=== PATIENT | male | born 1950 | race Caucasian/White ===

== ENCOUNTER 2020-03-23 08:22 | Observation (INO) ==
--- NOTE | 2020-02-23 13:09 | PAT Medication Instructions ---
Medication Instructions Date of Service February 23, 2020 Home Medications Medication Instructions Recorded Jaison Pascual #1 ea 02/23/20 alfalfa 250 mg PO QAM allopurinol 300 mg PO QAM amlodipine-benazepril 1 cap PO QAM ascorbic acid (vitamin C) [Vitamin C] 500 mg PO PM aspirin 81 mg PO QAM beta carotene 7,500 unit PO PM calcium 600 mg PO BID cholecalciferol (vitamin D3) [Vitamin D3] 25 mcg PO QAM cyanocobalamin (vitamin B-12) [Vitamin B-12] 500 mcg PO QAM etanercept [Enbrel] 50 mg SUBCUT WK folic acid 0.4 mg PO QAM glucosamine sulfate [Glucosamine] 1,000 mg PO HS multivitamin 1 cap PO PM omega-3 fatty acids-fish oil [[place] 3 Fish Oil] 1 cap PO BID saw palmetto 450 mg PO QAM sodium chloride [Saline Nasal] 1 spray INTRANASAL HS vitamin E 400 unit PO BID ASK your prescriber and surgeon etanercept [Enbrel] 50 mg SUBCUT WK STOP taking 2 weeks before surgery vitamin E 400 unit PO BID alfalfa 250 mg PO QAM beta carotene 7,500 unit PO PM glucosamine sulfate [Glucosamine] 1,000 mg PO HS omega-3 fatty acids-fish oil [[place] 3 Fish Oil] 1 cap PO BID saw palmetto 450 mg PO QAM DO NOT take the morning of surgery amlodipine-benazepril 1 cap PO QAM calcium 600 mg PO BID cholecalciferol (vitamin D3) [Vitamin D3] 25 mcg PO QAM cyanocobalamin (vitamin B-12) [Vitamin B-12] 500 mcg PO QAM folic acid 0.4 mg PO QAM Take morning of surgery With a small sip of water, OTHERWISE NOTHING TO EAT OR DRINK AFTER MIDNIGHT: allopurinol 300 mg PO QAM aspirin 81 mg PO QAM Take evening before surgery ascorbic acid (vitamin C) [Vitamin C] 500 mg PO PM calcium 600 mg PO BID multivitamin 1 cap PO PM sodium chloride [Saline Nasal] 1 spray INTRANASAL HS Other Notes If you have any questions please call us at [phone] or [phone] or [phone] or [phone]
--- NOTE | 2020-02-23 13:19 | Anesthesiology Consultation ---
Date of Service February 23, 2020 Assessment & Plan (1) Encounter for pre-operative examination: COVID Status: As of 02/22 assessment, patient denies travel to endemic area, known exposure/sick contacts, or symptoms of COVID19. Patient instructed that they and their household members must follow strict social distancing guidelines, wear a mask in public and avoid travel for 14 days prior to surgery. Preoperative COVID19 testing to be completed prior to surgery per surgeon's ar rangements (pt reports to be done 03/17). Patient made aware to self-isolate as much as possible between COVID testing and surgery. Chart Review Chart Review: Acceptable Risk for Surgery and Patient seen in Pre Admission Testing Teaching & Discussion Instructed NPO after midnight before surgery, except medications with 15 cc of water. Medication instructions provided according to the PAT guidelines. History Surgery Operation Date: 03/23/20 12:30 Proposed Procedures p Left Total Knee Arthroplasty - Noam Nicole MD Height/Weight Height: 5 ft 9 in Weight: 101.4 kg Allergies Allergy/AdvReac Type Severity Reaction Status Date / Time No Known Allergies Allergy Verified 02/23/20 10:07 Medications Home Medications Medication Instructions Recorded Confirmed Last Taken Wheeled Walker #1 ea 02/23/20 02/23/20 Unknown alfalfa 250 mg PO QAM 02/23/20 02/23/20 Unknown allopurinol 300 mg PO QAM 02/23/20 02/23/20 Unknown amlodipine-benazepril 1 cap PO QAM 02/23/20 02/23/20 Unknown ascorbic acid (vitamin C) [Vitamin 500 mg PO PM 02/23/20 02/23/20 Unknown C] aspirin 81 mg PO QAM 02/23/20 02/23/20 Unknown beta carotene 7,500 unit PO PM 02/23/20 02/23/20 Unknown calcium 600 mg PO BID 02/23/20 02/23/20 Unknown cholecalciferol (vitamin D3) 25 mcg PO QAM 02/23/20 02/23/20 Unknown [Vitamin D3] cyanocobalamin (vitamin B-12) 500 mcg PO QAM 02/23/20 02/23/20 Unknown [Vitamin B-12] echinacea 400 mg PO QAM 02/23/20 02/23/20 Unknown etanercept [Enbrel] 50 mg SUBCUT WK 02/23/20 02/23/20 Unknown folic acid 0.4 mg PO QAM 02/23/20 02/23/20 Unknown glucosamine sulfate [Glucosamine] 1,000 mg PO HS 02/23/20 02/23/20 Unknown multivitamin 1 cap PO PM 02/23/20 02/23/20 Unknown omega-3 fatty acids-fish oil 1 cap PO BID 02/23/20 02/23/20 Unknown [[place] 3 Fish Oil] saw palmetto 450 mg PO QAM 02/23/20 02/23/20 Unknown sodium chloride [Saline Nasal] 1 spray INTRANASAL HS 02/23/20 02/23/20 Unknown vitamin E 400 unit PO BID 02/23/20 02/23/20 Unknown Past Medical History Medical History DDD (degenerative disc disease) Had lumbar steroid injection in mid-January Gout right big toe with gout at this time Hypertension Left knee DJD Rheumatoid arthritis On Enbrel Sleep apnea with cpap Exercise / Class Metabolic Activity II 4-5 Yardwork/Stairs/Walk up hill (Denies CP or SOB with 1 FOS) Past Surgical History Surgical History History of carpal tunnel release right and left History of cataract surgery both eyes History of colonoscopy had on polyp removed History of esophagogastroduodenoscopy (EGD) 1990, 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 Physical Exam Vital Signs Last Vital Signs Temp 36.8 C 02/23/20 12:55 Pulse 100 H 02/23/20 12:55 Resp 16 02/23/20 12:55 BP 148/84 H 02/23/20 12:55 Pulse Ox 96 02/23/20 12:55 ENMT Mouth: + chipped teeth (worn down/broken lower incisors); no dental restorations and no loose teeth Thyromental Distance: > or= 3.5 Finger Breadths Mallampati Class: II Neck + short neck; neck extension not limited Respiratory normal respiratory effort Auscultation: lungs clear to auscultation bilaterally Cardiovascular Rate/Rhythm: regular rhythm and + tachycardic Heart Sounds: no murmur Extremities: no edema Testing Laboratory Results 02/23/20 13:30 02/23/20 13:30 PT 10.5 Seconds (9.0-12.0) 02/23/20 13:30 INR 1.0 (0.9-1.1) 02/23/20 13:30 APTT 24.3 Seconds (21.0-31.0) 02/23/20 13:30 Blood Type O Negative 02/23/20 13:30 Antibody Screen NEGATIVE 02/23/20 13:30 Electrocardiogram Date: 02/23/20 Findings: + NSR @ (91bpm) With PACs, otherwise normal. Chest X-Ray Date: 02/23/20 Findings: + NAD
--- NOTE | 2020-02-23 13:54 | XRay Report ---
XR chest Pre-admission PA/Lat CLINICAL HISTORY: Preoperative chest COMPARISON STUDY: No previous studies for comparison. FINDINGS: The cardiac and mediastinal contours are normal. There is no evidence of focal pulmonary co nsolidation. There is no evidence of failure. No pleural effusions are visualized.[ IMPRESSION: No active disease in the chest. ACT 112: Negative or not required by law. Electronically signed by: Da Lara M.D. 02/23/2020 1:52 PM
[2020-02-23 14:02] LABS: Basophils # (auto) 0.01 K/uL (0-0.2); Basophils % (auto) 0.1 %; Eosinophils # (auto) 0.06 K/uL (0-0.5); Eosinophils % (auto) 0.6 %; Hematocrit (blood only) 44.3 % (42-52); Hemoglobin 14.7 g/dL (14.0-18.0); Immature Granulocytes # (auto) 0.08 K/uL (0.00-0.02); Immature Granulocytes % (auto) 0.8 %; Mean Corpuscular Hemoglobin 29.1 pg (25-34); Mean Corpuscular Hgb Conc 33.2 g/dL (32-36); Mean Corpuscular Volume 87.7 fL (80-100); Mean Platelet Volume 10.5 fL (7.4-10.4); Monocytes # (auto) 0.75 K/uL (0.11-0.59); Monocytes % (auto) 7.5 %; Neutrophils # (auto) 7.01 K/uL (1.4-6.5); Platelet Count 204 K/uL (130-400); RDW Coefficient of Variation 13.5 % (11.5-14.5); RDW Standard Deviation 43.4 fL (36.4-46.3); Red Blood Count 5.05 M/uL (4.7-6.1); White Blood Count 10.01 K/uL (4.8-10.8)
[2020-02-23 14:27] LABS: Partial Thromboplastin Ratio 0.9; Partial Thromboplastin Time 24.3 Seconds (21.0-31.0); Prothrombin Time 10.5 Seconds (9.0-12.0)
[2020-02-23 14:35] LABS: BUN Creatinine Ratio 12.7 (10-20); Calcium 9.4 mg/dl (8.5-10.1); Est GFR (African American) 61.5; Est GFR (Non-African American) 53.1; Potassium 4.1 mmol/L (3.5-5.1)
--- NOTE | 2020-02-23 16:14 | Electrocardiogram Report ---
Test Reason : Blood Pressure : / mmHG Vent. Rate : 091 BPM Atrial Rate : 091 BPM P-R Int : 148 ms QRS Dur : 092 ms QT Int : 332 ms P-R-T Axes : 057 087 058 degrees QTc Int : 408 ms Sinus rhythm with Premature atrial complexes Otherwise normal ECG No previous ECGs available Confirmed by Kevin Jean ([id number]) on 02/23/2020 4:14:10 PM Referred By: Noam Nicole Confirmed By:Kevin Jean
[~2020-03-23 08:22] MED LIST: ACETAMINOPHEN 500 MG TAB PO SCH; BUPIVACAINE 0.25% 30 ML VIAL ONE; BUPIVACAINE 0.5 % 5 MG/1 ML PF 10ML VIAL ONE; BUPIVACAINE LIPOSOME/PF 266 MG, BUPIVACAINE/EPINEPHRINE 50 ML, SODIUM CHLORIDE 0.9% 30 ... INFIL SCH; FAMOTIDINE 20 MG TAB PO SCH; GABAPENTIN 300 MG CAP PO SCH; LR 500ML BOLUS, THEN 15ML/HR IV SCH; LR 60ML/HR IV SCH; METOCLOPRAMIDE HCL 10 MG TABLET PO SCH; TRANEXAMIC ACID 1,000 MG **IV Intra-op IV SCH; TRANEXAMIC ACID 1,000 MG x 1 **For Topical Use TOP SCH; ceFAZolin 2000MG 2,000 MG/15 ML SYR IV SCH
--- NOTE | 2020-03-23 08:37 | History & Physical Bridge Note ---
Date of Service March 23, 2020 History & Physical Bridge Note I have examined the patient, reviewed the History & Physical and in the interval since the performance of the History & Physical I have noted the following changes of clinical significance: no changes noted
[2020-03-23] MEDS ORDERED: MIDAZOLAM HCL 1 MG/ML 2ML VIAL ONE (09:09)
[2020-03-23] MEDS ORDERED: fentaNYL citrate 100 MCG/2 ML VIAL ONE (09:09)
[2020-03-23] MEDS ORDERED: PROPOFOL IV EMULSION 10 MG/ML 20 ML VIAL IV ONE ×3 (09:10→11:03)
[2020-03-23] MEDS ORDERED: BUPIVACAINE 0.25% 30 ML VIAL ONE (10:18)
[2020-03-23] MEDS ORDERED: BACITRACIN INJ 50,000 UNIT VIAL ONE (10:18)
[2020-03-23] MEDS ORDERED: SODIUM CHLORIDE 0.9% PF 50 ML VIAL ONE (10:18)
[2020-03-23] MEDS ORDERED: BUPIVACAINE LIPOSOME 1.3% 266 MG/20 ML VIAL ONE (10:18)
[2020-03-23] MEDS ORDERED: EPINEPHrine INJ 1 MG/ML AMP ONE (10:19)
[2020-03-23] MEDS ORDERED: ATROPINE SULFATE 0.1 MG/ML 10ML SYR IV PRN (10:59)
[2020-03-23] MEDS ORDERED: ePHEDrine sulfate 50 MG/ML AMP IV PRN (10:59)
[2020-03-23] MEDS ORDERED: fentaNYL citrate 100 MCG/2 ML VIAL IV PRN (10:59)
[2020-03-23] MEDS ORDERED: ONDANSETRON INJ 2 MG/ML 2 ML VIAL IV PRN ×2 (10:59→13:53)
[2020-03-23] MEDS ORDERED: PHENYLEPHRINE 100MCG/ML 5ML SYR ONE (11:17)
--- NOTE | 2020-03-23 12:19 | Post Operative Brief Note ---
PG Immediate Post Op with CF Date of Surgery March 23, 2020 Pre & Post Diagnosis Operation Date: 03/23/20 10:40 Pre-Op Diagnosis: Left Knee Advanced Degnerative Joint Disease Post-Op Diagnosis: Left Knee Advanced Degnerative Joint Disease I identified the patient and participated in the time-out.: Yes Procedure Operation Date: 03/23/20 10:40 Actual Procedures p Left Total Knee Arthroplasty(Left) - Noam Nicole MD Surgeon Noam Nicole MD Battery Mechanic DOUG Machado Estimated Blood Loss 50 Findings Consistent with Post-Op Diagnosis Fluids 1000 cc Specimens Specimen Description: A. Left Knee Bone and Tissue Drains Pillai Catheter Anesthesia Type Spinal MAC Complications none Disposition Accompanied Patient To Recovery: No Disposition: Recovery Room
--- NOTE | 2020-03-23 12:30 | Operative Report ---
Post Operative Report Pre & Post Diagnosis Operation Date: 03/23/20 10:40 Pre-Op Diagnosis: Left Knee Advanced Degnerative Joint Disease Post-Op Diagnosis: Left Knee Advanced Degnerative Joint Disease I identified the patient and participated in the time-out.: Yes Procedure Operation Date: 03/23/20 10:40 Actual Procedures p Left Total Knee Arthroplasty(Left) - Noam Nicole MD Surgeon Noam Nicole MD Design Leader DOUG Machado Estimated Blood Loss 50 Findings Consistent with Post-Op Diagnosis Operative findings revealed advanced left knee medial compartment arthritis. He had grade 4 disease of the medial femoral condyle medial tibial plateau. 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 The lateral and patellofemoral compartments were quite well-preserved. Moderate-sized joint effusion. Fluids 1000 cc Specimens Left knee sent for pathology. Drains None. Anesthesia Type Spinal MAC Complications none Disposition Accompanied Patient To Recovery: No Disposition: Recovery Room Indications Patient is a 61-year-old gentleman is had a several year history of increasing left knee pain discomfort which been unresponsive conservative treatment. Measures and elected proceed with total knee arthroplasty. Description of Procedure Operative implants consisted of: 1. Biomet Vanguard size 65 the left posterior stabilized femoral component. 2. Biomet size 75 tibial tray. 3. 10 mm posterior stabilized polyethylene insert. 4. 31 x 8 all polypatella. The patient was taken to the operating identified and placed on the operating table supine position protectors were properly padded. IV antibiotics tried by anesthesia team. A spinal anesthetic and abductor canal block had been provided in the holding area. A Pillai catheter was placed in sterile fashion. A left thigh turn was then placed. The left lower extremities then prepped and draped in usual sterile fashion. The left leg was elevated exsanguinated with use of an Esmarch and tourniquet placed at 3 mmHg. An anterior approach to the left knee was then performed through a longitudinal incision centered over the patella. Sharp dissection was got through subcutaneous tissue down the extensor mechanism. A medial parapatellar arthrotomy incision was made. Some subperiosteal dissection was carried out medially. The fat pad was resected from each patella tendon. Lateral patellofemoral ligament was released. Patella was subluxated laterally and the knee was flexed. The osteophytes were taken off the distal femur. The ACL and PCL were then released from the distal femur and the tibia was subluxa dalia anteriorly. The external tibial alignment jig was then placed in the interface the tibia and adjusted 14 mm medially. Proximal tibial cut was made to remove about 2 to 3 mm of bone from the medial side. Some osteophytes taken off medially. The tibia sized to a size 75. Attention drawn the femur. The distal femur was entered with a sharp drill. Intramedullary canal was suction. A left 6 degree valgus cutting guide was placed. Distal femoral cutting block was pinned in place. Distal femoral cut was made taking additional 3 mm bone off distal femur. The femur was then sized to a size 65. The AP cutting block was pinned parallel to the epicondylar axis which was 5 degrees of external rotation. The anterior cut, anterior chamfer, posterior cut, posterior chamfer cuts were made. The box cutting guide was placed in a just slight lateral box cut was made. The knee was flexed. The remnants of the medial and lateral menisci were excised. The osteophytes were taken off the po sterior aspect the femur. A trial femoral component was placed. The tibial tray was pinned in maximum external rotation and the drill and stem punch were used to create defect in proximal tibia for the tibial tray. The knee was then trialed the 10 mm insert fit most appropriately. Attention drawn the patella. The patella was cleaned of all soft tissues. Patella thickness measured 22 mm in thickness was cut down to 13. Was sized to a size 31 patella. The lug holes were drilled for 31 patella. The lateral osteophyte was removed. Patella button was placed. Knee was taken through range of motion patella tracked nicely with no thumbs test. Attention drawn to place the permanent components. All trial components were removed. A bone plug was placed in the distal femur limit blood loss. A double batch [place] G cement was mixed. A Biomet Vanguard size 65 left posterior stabilized femoral component, size 75 tibial tray, 10 mm posterior stabilized polyethylene insert, and a 31 x 8 all polypatella were then cemented in place. Knee was brought out into full extension total cement hardened. Final cement check was then performed. The pericapsular tissues were injected with total 100 cc of combination of 20 cc of Exparel, 30 cc normal saline, 50 cc of quarter percent Marcaine with epinephrine. The patient did receive 1 g tranexamic acid. The tourniquet was let down for final tourniquet time 57 minutes. Hemostasis assured use electrocautery. The extensor neck was then closed with combination 1 PDS suture #1 Vicryl suture in [id number] fashion. The extensor mechanism checked found to be intact with subcutaneous tissue then closed with 2 Dexon suture in a buried interrupted fashion. Skin was closed skin magaly. The leg was then cleaned and dried and a sterile dressing composed of Xeroform, 4 x 4's, sterile cast padding, Loc bandage were applied. Patient then transferred to the recovery room in stable condition. Patient tolerated procedure well and there were no complications. Eloy Machado, my physician sales assistant institutional sales, was present for the entire procedure. His assistance was essential and required for appropriate patient positioning, prepping and draping, surgical exposure, performing the technical details of the operation, placement the implants, closure of the wound, and placement of the sterile bandage. I attest to the content of the Intraoperative Record and any orders documented therein. Any exceptions are noted below.
--- NOTE | 2020-03-23 12:46 | XRay Report ---
XR knee LT 1 or 2V routine CLINICAL HISTORY: Postoperative evaluation. COMPARISON: Left knee radiographs February 23, 2020. FINDINGS: Alignment of the total left knee arthroplasty is anatomic. There is no periprosthetic frac ture or unexpected radiopaque foreign body. There are skin magaly. IMPRESSION: Expected findings following total left knee arthroplasty. ACT 112: Negative or not required by law. Electronically signed by: Tae Barker M.D. 03/23/2020 12:44 PM
--- NOTE | 2020-03-23 12:59 | Anesthesiology Progress Note ---
Date of Service March 23, 2020 Anesthesia Post Procedure Vital Signs Vital Signs: Temp Pulse Pulse Resp BP BP Pulse Ox 03/23/20 12:50 92 H 18 132/77 98 03/23/20 12:40 87 19 127/77 98 03/23/20 12:30 85 20 118/66 100 03/23/20 12:24 36.3 C L 87 14 125/68 100 03/23/20 09:57 37.1 C 89 20 141/88 H 95 03/23/20 09:24 37.3 C 100 H 18 155/86 H 95 Pain Intensity Left Knee: Pain Intensity: 0 Transfer of Care Handoff Completed per policy Notes Mental Status: alert / awake / arousable and participated in evaluation Patient Amnestic to Procedure: Yes Nausea / Vomiting: adequately controlled Pain: adequately controlled Airway Patency, RR, SpO2: stable & adequate BP & HR: stable & adequate Hydration State: stable & adequate Neuraxial Anesthesia: was administered and sensory block is resolving Anesthetic Complications: no major complications apparent and Pt Satisfied with anesthetic care
[2020-03-23] MEDS ORDERED: MAGNESIUM HYDROXIDE SUSP 30 ML UDC PO PRN (13:53)
[2020-03-23] MEDS ORDERED: oxyCODONE HCL IR 5 MG TAB (IMMEDIATE RELEASE) PO PRN (13:53)
[2020-03-23] MEDS ORDERED: HYDROmorphone INJ 0.5 MG/0.5 ML SYR IV PRN (13:53)
[2020-03-23] MEDS ORDERED: METOCLOPRAMIDE HCL INJ 5 MG/ML 2 ML VIAL IV PRN (13:53)
[2020-03-23] MEDS ORDERED: TAMSULOSIN HCL 0.4 MG CAP PO PRN (13:53)
[2020-03-23] MEDS ORDERED: ALUMINUM/MAGNESIUM SUSP 30 ML UDC PO PRN (13:53)
[2020-03-23] MEDS ORDERED: bisacodyL 10 MG SUPP PR PRN (13:53)
[2020-03-23] MEDS ORDERED: NALOXONE HCL 0.4 MG/1 ML VIAL/CARP IV PRN (13:53)
[2020-03-23] MEDS: SODIUM CHLORIDE 0.9% 1000ML 1,000 ML IV SCH ×2 (14:41→22:58)
[2020-03-23] MEDS: ACETAMINOPHEN 500 MG TAB PO SCH ×2 (14:44→21:56)
[2020-03-23] MEDS: KETOROLAC TROMETHAMINE 15 MG/ML VIAL IV SCH ×2 (14:46→21:58)
[2020-03-23] MEDS: FERROUS GLUCONATE 324 MG TAB PO SCH (18:06)
[2020-03-23] MEDS: Scopolamine CHECK PATCH PLACEMENT SCH ×2 (18:07→22:58)
[2020-03-23] MEDS: ceFAZolin 2000MG 2,000 MG/15 ML SYR IV SCH (18:14)
[2020-03-23] MEDS ORDERED: TRANEXAMIC ACID / 0.7% NACL 1,000 MG/100 ML BAG IV SCH (18:30)
[2020-03-23] MEDS ORDERED: SODIUM CHLORIDE 0.65% NA SOLN 45 ML (OCEAN) NAE SCH (21:00)
[2020-03-23] MEDS ORDERED: ASCORBIC ACID 500 MG TAB PO SCH (21:00)
[2020-03-23] MEDS ORDERED: MULTIVITAMIN TAB PO SCH (21:00)
[2020-03-23] MEDS ORDERED: SENNA 8.6 MG TAB PO SCH (21:00)
[2020-03-23] MEDS ORDERED: BETA CAROTENE PO SCH (21:00)
[2020-03-23] MEDS: TOCOPHERYL, DL-ALPHA 400 UNITS CAP PO SCH (21:55)
[2020-03-23] MEDS: DOCUSATE SODIUM 100 MG CAP PO SCH (21:56)
[2020-03-23] MEDS: ASPIRIN 81 MG ECTAB PO SCH (21:57)
[2020-03-23] MEDS: CALCIUM CARBONATE 1250MG TAB PO SCH (21:58)
[2020-03-23] MEDS: TAPENTADOL HCL ER 50 MG TABCR PO SCH (22:04)
[2020-03-24] MEDS: KETOROLAC TROMETHAMINE 15 MG/ML VIAL IV SCH ×2 (02:18→09:11)
[2020-03-24] MEDS: ceFAZolin 2000MG 2,000 MG/15 ML SYR IV SCH (02:18)
[2020-03-24] MEDS: ACETAMINOPHEN 500 MG TAB PO SCH ×2 (05:32→13:18)
[2020-03-24 06:44] LABS: Hematocrit (blood only) 38.3 % (42-52); Hemoglobin 12.6 g/dL (14.0-18.0); Mean Corpuscular Hemoglobin 29.2 pg (25-34); Mean Corpuscular Hgb Conc 32.9 g/dL (32-36); Mean Corpuscular Volume 88.7 fL (80-100); Mean Platelet Volume 10.8 fL (7.4-10.4); Platelet Count 198 K/uL (130-400); RDW Coefficient of Variation 13.5 % (11.5-14.5); RDW Standard Deviation 44.5 fL (36.4-46.3); Red Blood Count 4.32 M/uL (4.7-6.1); White Blood Count 10.22 K/uL (4.8-10.8)
[2020-03-24 06:51] LABS: BUN Creatinine Ratio 13.3 (10-20); Calcium 8.6 mg/dl (8.5-10.1); Creatinine Clr Calc Pharmacy 60.5 ml/min; Est GFR (African American) 61.5; Est GFR (Non-African American) 53.1; Potassium 4.5 mmol/L (3.5-5.1)
[2020-03-24] MEDS: FERROUS GLUCONATE 324 MG TAB PO SCH (08:55)
[2020-03-24] MEDS: ASPIRIN 81 MG ECTAB PO SCH (08:56)
[2020-03-24] MEDS: DOCUSATE SODIUM 100 MG CAP PO SCH (08:56)
[2020-03-24] MEDS: CALCIUM CARBONATE 1250MG TAB PO SCH (08:58)
[2020-03-24] MEDS ORDERED: ECHINACEA 400 MG PO SCH (09:00)
[2020-03-24] MEDS ORDERED: NON-FORMULARY MEDICATION (Saw Palmetto 450 mg Capsule) PO SCH (09:00)
[2020-03-24] MEDS ORDERED: CYANOCOBALAMIN 500 MCG TABLET (VITAMIN B-12) PO SCH (09:00)
[2020-03-24] MEDS ORDERED: amLODIPine BESYLATE 5 MG TAB PO SCH (09:00)
[2020-03-24] MEDS ORDERED: AMLODIPINE BENAZEPRIL PO SCH (09:00)
[2020-03-24] MEDS ORDERED: MULTIVITAMIN TAB PO SCH (09:00)
[2020-03-24] MEDS ORDERED: ALFALFA 250 MG PO SCH (09:00)
[2020-03-24] MEDS ORDERED: ENALAPRIL MALEATE 10 MG TAB PO SCH (09:00)
[2020-03-24] MEDS ORDERED: allopurinoL 300 MG TAB PO SCH (09:00)
[2020-03-24] MEDS ORDERED: FOLIC ACID 400 MCG TAB PO SCH (09:00)
[2020-03-24] MEDS ORDERED: CHOLECALCIFEROL 1,000 UNITS 25 MCG TAB PO SCH (09:00)
[2020-03-24] MEDS: TOCOPHERYL, DL-ALPHA 400 UNITS CAP PO SCH (09:00)
[2020-03-24] MEDS: Scopolamine CHECK PATCH PLACEMENT SCH (09:07)
[2020-03-24] MEDS: TAPENTADOL HCL ER 50 MG TABCR PO SCH (09:07)
--- NOTE | 2020-03-24 10:41 | Progress Notes ---
DATE: 03/24/2020 SUBJECTIVE: A 69-year-old gentleman postop day 1 from left knee replacement. He is doing pretty well. Had a pretty good night. His pain is controlled. No chest pain or shortness of breath. Not feeling dizzy or lightheaded. OBJECTIVE: VITAL SIGNS: Temperature 36.7. Vital signs stable. GENERAL: Shows a pleasant, middle-aged male. He is lying in bed this morning and looks quite comfortable. LUNGS: Clear to auscultation. HEART: Regular rate and rhythm. ABDOMEN: Soft, nontender, nondistended. EXTREMITIES: Grossly neurovascularly intact except as follows: Examination of the left lower extremity reveals the leg to be well aligned. Dressing is clean, dry, and intact. He can dorsiflex and plantarflex his foot appropriately. He is neurologically intact. LABORATORY DATA: Hemoglobin 12.6. Hematocrit 38.3. Electrolytes are stable. ASSESSMENT: A 69-year-old gentleman postoperative day 1 from left knee replacement, doing pretty well. Pain seems to be quite well controlled. He is neurologically intact. PLAN: 1. DVT prophylaxis including thigh-high TEDs, SCDs, and aspirin twice a day. 2. PT/OT. Weight bear as tolerated. Left total knee protocol. 3. Pain control, doing pretty well with current pain regimen. 4. Disposition: Plan to discharge to home with some home health once adequately recovered and medically stable.
--- NOTE | 2020-03-29 15:26 | Discharge Summary ---
Date of Service March 29, 2020 Admission HPI Per Admitting Provider Documented in the H & P Admission Exam (Per Admitting) Constitutional Documented in the H & P Discharge Data Consultations 03/23/20 13:53 Consult Case Management - Discharge Planning Routine Procedures Performed Operation Date: 03/23/20 10:40 Actual Procedures p Left Total Knee Arthroplasty(Left) - Noam Nicole MD Hospital Course (1) Status post total left knee replacement: This patient is a 69 year old male admitted on 03/23/20 and underwent total knee arthroplasty. He tolerated the procedure well and there were no complications. Transferred to the PACU post op and later to the orthopedic floor for further care. He was given ancef for antibiotic prophylaxis. He was also given KAREN stockings, SCDs, and aspirin for DVT prophylaxis. Hemoglobin, hematocrit, and vital signs were monitored during his hospital stay and remained stable. Did not require any blood transfusions. There were no complications during his hospital stay. By post op day #1 the patient was tolerating a regular diet, pain was reasonably controlled with oral pain medicine, and he was participating in physical therapy. On post op day #1 the patient was discharged home and set up with home health care. He was given printed discharge instructions including prescriptions for extra strength tylenol, aspirin, and oxycodone. Continue physical therapy, weight bearing as tolerated. Continue KAREN stockings. Follow up approximately 2 weeks post op or sooner if there are problems or concerns. Coding Level of Care Code None Diagnoses Status post total left knee replacement Z96.652
== END 2020-03-24 13:35 | disposition home health service (06) ==
LOC: 3E 08:22 → ASU 08:22

== ENCOUNTER 2024-10-31 07:03 | Observation (INO) ==
--- NOTE | 2024-10-09 13:28 | PAT Medication Instructions ---
Medication Instructions Date of Service October 09, 2024 Home Medications Medication Instructions Recorded Jaison Pascual #1 ea 02/23/20 allopurinol 300 mg tablet 300 mg PO QAM amlodipine 10 mg-benazepril 40 mg capsule 1 cap PO QAM ascorbic acid (vitamin C) 500 mg tablet (Vitamin C) 500 mg PO PM calcium 600 mg capsule 600 mg PO QAM cholecalciferol (vitamin D3) 25 mcg (1,000 unit) capsule (Vitamin D3) 25 mcg PO QAM cyanocobalamin (vitamin B-12) 500 mcg tablet,extended release 500 mcg PO QAM echinacea 400 mg capsule 400 mg PO QAM PRN winter etanercept 50 mg/mL (1 mL) subcutaneous syringe (Enbrel) 50 mg subcut WK folic acid 400 mcg tablet 0.4 mg PO QAM multivitamin 1 cap PO PM omega-3 fatty acids-fish oil 684 mg-1,200 mg capsule,delayed release 1 cap PO BID saw palmetto 450 mg capsule 450 mg PO QAM sodium chloride 0.65 % nasal spray aerosol (Saline Nasal) 1 spray intranasal HS vitamin E 268 mg (400 unit) capsule 400 unit PO BID aspirin 81 mg tablet 81 mg PO QAM beta carotene 5,000 unit capsule 10,000 unit PO PM gabapentin 400 mg tablet 400 mg PO HS gabapentin 800 mg tablet 800 mg PO HS glucosamine HCl 1,500 mg tablet 1,500 mg PO QAM hydrochlorothiazide 12.5 mg tablet 12.5 mg PO Q2D magnesium 200 mg tablet 400 mg PO QAM ASK your prescriber and surgeon etanercept 50 mg/mL (1 mL) subcutaneous syringe (Enbrel) 50 mg subcut WK aspirin 81 mg tablet 81 mg PO QAM STOP taking 2 weeks before surgery (or as soon as possible if surgery is within 2 weeks) echinacea 400 mg capsule 400 mg PO QAM PRN winter omega-3 fatty acids-fish oil 684 mg-1,200 mg capsule,delayed release 1 cap PO BID saw palmetto 450 mg capsule 450 mg PO QAM vitamin E 268 mg (400 unit) capsule 400 unit PO BID beta carotene 5,000 unit capsule 10,000 unit PO PM glucosamine HCl 1,500 mg tablet 1,500 mg PO QAM DO NOT take the morning of surgery amlodipine 10 mg-benazepril 40 mg capsule 1 cap PO QAM calcium 600 mg capsule 600 mg PO QAM cholecalciferol (vitamin D3) 25 mcg (1,000 unit) capsule (Vitamin D3) 25 mcg PO QAM cyanocobalamin (vitamin B-12) 500 mcg tablet,extended release 500 mcg PO QAM folic acid 400 mcg tablet 0.4 mg PO QAM hydrochlorothiazide 12.5 mg tablet 12.5 mg PO Q2D magnesium 200 mg tablet 400 mg PO QAM Take morning of surgery With a small sip of water, OTHERWISE NOTHING TO EAT OR DRINK AFTER MIDNIGHT: allopurinol 300 mg tablet 300 mg PO QAM Take evening before surgery ascorbic acid (vitamin C) 500 mg tablet (Vitamin C) 500 mg PO PM multivitamin 1 cap PO PM sodium chloride 0.65 % nasal spray aerosol (Saline Nasal) 1 spray intranasal HS gabapentin 400 mg tablet 400 mg PO HS gabapentin 800 mg tablet 800 mg PO HS Other Notes If you have any questions please call us at [phone] or [phone] or [phone] or [phone]
--- NOTE | 2024-10-14 08:17 | Anesthesiology Consultation ---
Date of Service October 14, 2024 Assessment & Plan (1) Encounter for pre-operative examination: - Infectious disease screening: Per assessment on 10/14/24- No known recent infectious disease contacts or current infectious disease symptoms. - Outpatient joint assessment: Pt currently scheduled for inpatient pathway. If surgeon requests review for outpatient joint pathway, patient is an acceptable candidate for outpatient joint program from anesthesia standpoint pending surgeon's office assessment that patient is motivated, has good support and completes [facility] preop requirements. Chart Review Chart Review: Acceptable Risk for Surgery and Patient seen in Pre Admission Testing Teaching & Discussion Pre-Anesthesia Teaching/Discussion Notes: Instructed NPO after midnight before surgery,except medications with 15 cc of water. Medication instructions provided according to the PAT guidelines. History Surgery Operation Date: 10/31/24 10:40 Proposed Procedures p Right Total Knee Arthroplasty - Noam Nicole MD Height/Weight Height: 5 ft 9 in Weight: 97.3 kg Allergies Allergy/AdvReac Type Severity Reaction Status Date / Time No Known Allergies Allergy Verified 10/09/24 08:45 Medications Home Medications Medication Instructions Recorded Confirmed Last Taken Wheeled Walker #1 ea 02/23/20 04/07/20 Unknown allopurinol 300 mg tablet 300 mg PO QAM 02/23/20 10/09/24 03/22/20 08:00 amlodipine 10 mg-benazepril 40 mg 1 cap PO QAM 02/23/20 10/09/24 03/22/20 08:00 capsule ascorbic acid (vitamin C) 500 mg 500 mg PO PM 02/23/20 10/09/24 03/22/20 08:00 tablet (Vitamin C) calcium 600 mg capsule 600 mg PO QAM 02/23/20 10/09/24 03/23/20 06:00 cholecalciferol (vitamin D3) 25 25 mcg PO QAM 02/23/20 10/09/24 03/22/20 08:00 mcg (1,000 unit) capsule (Vitamin D3) cyanocobalamin (vitamin B-12) 500 500 mcg PO QAM 02/23/20 10/09/24 03/22/20 08:00 mcg tablet,extended release echinacea 400 mg capsule 400 mg PO QAM PRN winter months 02/23/20 10/09/24 03/11/20 08:00 etanercept 50 mg/mL (1 mL) 50 mg subcut WK 10/12/20 05/29/25 10/31/20 08:00 subcutaneous syringe (Enbrel) folic acid 400 mcg tablet 0.4 mg PO QAM 02/23/20 10/09/24 03/10/20 08:00 multivitamin 1 cap PO PM 02/23/20 10/09/24 03/23/20 06:00 omega-3 fatty acids-fish oil 684 1 cap PO BID 02/23/20 10/09/24 03/10/20 08:00 mg-1,200 mg capsule,delayed release saw palmetto 450 mg capsule 450 mg PO QAM 02/23/20 10/09/24 03/10/20 08:00 sodium chloride 0.65 % nasal spray 1 spray intranasal HS 02/23/20 10/09/24 03/22/20 23:00 aerosol (Saline Nasal) vitamin E 268 mg (400 unit) capsule 400 unit PO BID 02/23/20 10/09/24 03/10/20 08:00 aspirin 81 mg tablet 81 mg PO QAM 10/09/24 10/09/24 Unknown beta carotene 5,000 unit capsule 10,000 unit PO PM 10/09/24 10/09/24 Unknown gabapentin 400 mg tablet 400 mg PO HS 10/09/24 10/09/24 Unknown gabapentin 800 mg tablet 800 mg PO HS 10/09/24 10/09/24 Unknown glucosamine HCl 1,500 mg tablet 1,500 mg PO QAM 10/09/24 10/09/24 Unknown hydrochlorothiazide 12.5 mg tablet 12.5 mg PO Q2D 10/09/24 10/09/24 Unknown magnesium 200 mg tablet 400 mg PO QAM 10/09/24 10/09/24 Unknown Past Medical History Medical History DDD (degenerative disc disease) lumbar History of bleeding ulcers (1990) no recent issues History of cardiac murmur Echo done 2020 for murmur evaluation; no significant valvular disease History of COVID-19 ~2021: mild flu symptoms; resolved Hx of gout Hypertension Osteoarthritis Rheumatoid arthritis Taking Enbrel Sleep apnea CPAP (compliant) Exercise / Class Metabolic Activity III < 4 Walking/Shop/Light housework Past Family History Family History Other No family history of adverse response to anesthesia Past Surgical History Surgical History History of carpal tunnel release right and left History of cataract surgery both eyes History of colonoscopy had on polyp removed History of esophagogastroduodenoscopy (EGD) 1990, 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, cauterized History of prostate biopsy elevated PSA (benign) History of total left knee replacement (TKR) (03/2020) S/P epidural steroid injection [place] teeth extracted Past Anesthesia History No Hx of Anesthesia Complications and No Family Hx of Anesthesia Complications History of PONV No Hx of PONV and No Hx of Motion Sickness Social History Smoking Status: Never smoker Do You Dip or Chew Tobacco: No Hx Alcohol Use: Yes Alcohol type: wine alcohol intake frequency: holidays/special occasions only Hx Substance Use: No substance use type: does not use Review of Systems Patient denies chest pain, shortness of breath, dyspnea on exertion, fever, chills, cough, wheezing. Physical Exam Vital Signs BP 131/74 P 84 TEMP 98.1 SP02 97%RA RESP 16 Physical Mildly decreased cervical extension range of motion. Full TMJ range of motion. TMD > 3.5 finger breaths Mallampati Score III Dentition: upper/lower partials Lungs: clear throughout to auscultation Cardiac: regular rate and rhythm, II/ systolic murmur Spine: normal Carotid arteries: negative bruit Extremities: no LE edema Lab Results Anesthesia Preop Results Results Anesthesia Widget: WBC 7.61 K/ul (4.8-10.8) 10/14/24 Hgb 14.6 g/dl (14.0-18.0) 10/14/24 Hct 43.8 % (42.0-52.0) 10/14/24 Plt 242 K/uL (130-400) 10/14/24 Na 140 mmol/L (136-145) 10/14/24 K 4.4 mmol/L (3.5-5.1) 10/14/24 Cl 105 mmol/L (98-107) 10/14/24 CO2 30 mmol/L (21-32) 10/14/24 BUN 17 mg/dl (6-23) 10/14/24 Creat 1.18 mg/dl (0.6-1.4) 10/14/24 Glucose Level 126 mg/dl (70-99(Fasting)) H 10/14/24 PT 10.9 Seconds (9.0-12.0) 10/14/24 PTT 26 Seconds (21-31) 10/14/24 INR 1.0 (0.9-1.1) 10/14/24 Blood Type O Negative 10/14/24 Antibody Screen NEGATIVE 10/14/24 Testing Electrocardiogram Date: 10/14/24 NSR at 82bpm. Rightward axis. Chest X-Ray Date: 10/14/24 Findings: + NAD Echocardiogram Date: 11/05/20 EF 60%. No significant valvular disease. Other Testing Cervical spine xray Date: 10/14/24 FINDINGS: There are carotid bulb calcifications. There is severe diffuse degen erative disc disease. No fracture or subluxation. Prevertebral soft tissues have normal thickness. No abnormal translation seen. IMPRESSION: No abnormal translation seen.
[~2024-10-31 07:03] MED LIST changes: -ACETAMINOPHEN 500 MG TAB PO SCH; -BUPIVACAINE 0.25% 30 ML VIAL ONE; -BUPIVACAINE LIPOSOME/PF 266 MG, BUPIVACAINE/EPINEPHRINE 50 ML, SODIUM CHLORIDE 0.9% 30 ... INFIL SCH; +EPINEPHrine INJ 1 MG/ML AMP ONE; -FAMOTIDINE 20 MG TAB PO SCH; -GABAPENTIN 300 MG CAP PO SCH; -LR 500ML BOLUS, THEN 15ML/HR IV SCH; -LR 60ML/HR IV SCH; -METOCLOPRAMIDE HCL 10 MG TABLET PO SCH; +ROPIVACAINE 0.5% 5 MG/ML 30 ML VIAL ONE; -TRANEXAMIC ACID 1,000 MG **IV Intra-op IV SCH; -TRANEXAMIC ACID 1,000 MG x 1 **For Topical Use TOP SCH; -ceFAZolin 2000MG 2,000 MG/15 ML SYR IV SCH
[2024-10-31] MEDS: LR 500ML BOLUS, THEN 15ML/HR IV SCH (07:24)
[2024-10-31] MEDS: FAMOTIDINE 20 MG TAB PO SCH (07:26)
[2024-10-31] MEDS: ACETAMINOPHEN 500 MG TAB PO SCH ×2 (07:26→14:35)
[2024-10-31] MEDS: CeleBREX 200 MG CAP PO SCH (07:26)
[2024-10-31] MEDS: dexAMETHasone**PF** 10 MG/ML VIAL IV SCH (07:26)
[2024-10-31] MEDS: METOCLOPRAMIDE HCL 10 MG TABLET PO SCH (07:26)
[2024-10-31] MEDS ORDERED: MIDAZOLAM HCL 1 MG/ML 2ML VIAL ONE (07:31)
[2024-10-31] MEDS ORDERED: fentaNYL citrate PF 100 MCG/2 ML VIAL ONE (07:31)
[2024-10-31] MEDS ORDERED: PROPOFOL IV EMULSION 10 MG/ML 100 ML VIAL IV ONE (07:35)
[2024-10-31] MEDS ORDERED: LIDOCAINE 2% 2 ML VIAL/AMP(20MG/ML) INFIL ONE (07:39)
[2024-10-31] MEDS: LR 60ML/HR IV SCH (07:46)
[2024-10-31] MEDS ORDERED: ePHEDrine sulfate 50 MG/ML AMP IV PRN (07:49)
[2024-10-31] MEDS ORDERED: PROMETHAZINE HCL 6.25 MG in SODIUM CHLORIDE 0.9% 50 ML IV PRN (07:49)
[2024-10-31] MEDS ORDERED: ONDANSETRON INJ 2 MG/ML 2 ML VIAL IV PRN ×2 (07:49→11:59)
[2024-10-31] MEDS ORDERED: NALOXONE HCL 0.4 MG/1 ML VIAL/CARP IV PRN ×2 (07:49→11:59)
[2024-10-31] MEDS ORDERED: HYDROmorphone INJ 1 MG/ML SYRINGE IV PRN (07:49)
[2024-10-31] MEDS ORDERED: fentaNYL citrate PF 100 MCG/2 ML VIAL IV PRN (07:49)
[2024-10-31] MEDS ORDERED: FLUMAZENIL 0.1 MG/1 ML 10 ML VIAL IV PRN (07:49)
[2024-10-31] MEDS ORDERED: ATROPINE SULFATE 0.1 MG/ML 10ML SYR IV PRN (07:49)
--- NOTE | 2024-10-31 08:48 | History & Physical Bridge Note ---
Date of Service October 31, 2024 History & Physical Bridge Note I have examined the patient, reviewed the History & Physical and in the interval since the performance of the History & Physical I have noted the following changes of clinical significance: no changes noted
[2024-10-31] MEDS: TRANEXAMIC ACID 1,000 MG **IV Intra-op IV SCH (10:04)
[2024-10-31] MEDS: ROPIV 0.5% 246mg, Ketorolac 30mg, EPINEPHrine 0.5mg in NSS INFIL SCH (10:07)
--- NOTE | 2024-10-31 10:53 | Operative Report ---
PG Post Operative Report Pre & Post Diagnosis Operation Date: 10/31/24 08:50 Pre-Op Diagnosis: Right Knee Osteoarthritis Post-Op Diagnosis: Right Knee Osteoarthritis I identified the patient and participated in the time-out.: Yes Procedure Operation Date: 10/31/24 08:50 Actual Procedures p Right Total Knee Arthroplasty(Right) - Noam Nicole MD Surgeon Noam Nicole MD Hvac Refrigeration Technician Eloy Machado PA-C Estimated Blood Loss 50 Findings Consistent with Post-Op Diagnosis Operative findings were advanced right knee medial compartment DJD. 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 He had grade 4 [id number] disease on both sides of the joint. Moderate-sized joint effusion. Specimens Right knee sent for pathology. Anesthesia Type Spinal MAC Complications none Disposition Accompanied Patient To Recovery: No Indications The patient is a 74-year-old gentleman has had a long history of bilateral knee pain discomfort describes gotten worse over time. He did have his left knee replaced about 5 years ago and done well from this. Over time he developed progressive pain discomfort in his right knee. He failed conservative measures. He elected proceed with right total knee arthroplasty. Description of Procedure Operative implants consist of: 1 Biomet Vanguard size 67.5 right posterior stabilized femoral component. 2. Biomet size 71 tibial tray. 3. 10 mm posterior stabilized polyethylene insert. 4. 31 x 8 all poly patella. The patient was taken to the operating, identified, and placed on the operating table in the supine position. All contact areas were appropriately padded. IV antibiotics were provided by the anesthesia team. A spinal anesthetic had been implemented in the holding area along with an adductor canal block. Right side turn was then placed. The right lower extremity was then prepped and draped in usual sterile fashion. The right leg was elevated and exsanguinated with use of an Esmarch and a turn was placed at 300 mmHg. An anterior portion of the right knee was then performed to longitudinal incision centered over the patella. Sharp dissection was Through subcutaneous tissue down the extensor mechanism. A medial parapatellar arthrotomy incision was made. Some subperiosteal dissection was carried out medially. The fat pad was dissected from the patella tendon. The lateral patellofemoral ligament was released. Patella subluxated laterally and the knee was flexed. The osteophytes were taken off the distal femur. The ACL and PCL were then released from the distal femur and the tibia subluxated anteriorly. The external treatment LYMErix then placed on the anterior face of the tibia and adjusted 14 mm medially. The proximal tibial cut was made to remove about 2 to 3 mm of bone from the medial side. Tibia sized to size 71. Attention drawn the femur. The distal femur examined the sharp drill. Intramedullary canal was suction. A right 6 degree valgus cutting guide was placed. The distal femoral cutting block was pinned in place. This femoral cut was made to take an additional 3 mm of bone off the distal femur. The femur was then sized to a size 67.5. The AP cutting block was pinned parallel to the epicondylar axis which was 3 degrees of external rotation. The anterior cut, anterior chamfer, posterior cut, posterior chamfer cuts were made. The box cutting guide was placed and just slightly laterally. The box cut was made. The knee was flexed. The remnants of the medial and lateral menisci were excised. The osteophytes were taken off the posterior aspect of femur. A trial femoral component was placed. The tibial tray was pinned in Andria external rotation and the drill and stem punch were used to create defect in proximal tibia for the tibial tray. Knee was then trialed and the 10 mm insert fit most appropriately. Attention drawn the patella. The patella was cleaned of all soft tissues. Patella thickness measured 21 mm in thickness was cut down to 14. Was sized to a size 31 patella. The lug holes were drilled for 31 patella. The lateral osteophytes removed. Patella button was placed. Knee was snaked and through range of motion patella tracked nicely with no thumbs test. Attention jointer placed in permanent components. All trial components were removed. Bone plug was placed in the distal femur limit blood loss. A double batch [place] G cement was mixed. Biomet [employer] (SDI)guard size 67.5 right posterior stabilized femoral component, a size 71 tibial tray, a 10 mm posterior stabilized polyethylene insert, and a 31 x 8 all poly patella were then cemented in place. The knee was brought out into full extension till cement hardened. Final cement check was then performed. The pericapsular tis sues were injected with a total of 100 cc of Ortho mix. Patient did receive 1 g tranexamic acid. The tourniquet was then let down for final tourniquet time 51 minutes. Hemostasis surges electrocautery. Extensor [place] then closed with combination 1 PDS suture normal Vicryl suture in a [id number] fashion. Extensor [place] checked found to be intact. Subcutaneous tissue was then closed with 2 Dexon suture in a buried interrupted fashion the skin was closed skin magaly. Leg was then cleaned and dried and a sterile dressing with Xeroform, 4 fours, sterile cast padding, Loc bandage were applied. The patient then transferred to the recovery in stable condition. Patient tolerated the procedure well and there were no complications. Eloy Machado, my physician mental health assistant, was present for the entire procedure. His assistance was essential and required for appropriate patient positioning, prepping and draping, surgical exposure, performing the technical details of the operation, placement the implants, closure of the wound, and placement of the sterile bandage. I attest to the content of the Intraoperative Record and any orders documented therein. Any exceptions are noted below.
--- NOTE | 2024-10-31 11:15 | XRay Report ---
XR knee RT 1 or 2V routine CLINICAL HISTORY: Surgical Post Op COMPARISON: None FINDINGS: Right knee prosthesis shows no hardware complication. There is expected soft tissue gas. S kin magaly are present. IMPRESSION: Unremarkable postoperative exam. ACT 112: Negative or not required by law. Electronically signed by: Pepe Adhikari M.D. 10/31/2024 11:14 AM
--- NOTE | 2024-10-31 11:44 | Anesthesiology Progress Note ---
Date of Service October 31, 2024 Anesthesia Post Procedure Vital Signs Vital Signs: Temp Pulse Pulse Resp BP Pulse Ox O2 Del Method 10/31/24 11:25 36.4 C L 86 12 122/81 97 Oxymask 10/31/24 11:15 84 15 122/64 98 Oxymask 10/31/24 11:05 79 20 118/63 97 Oxymask 10/31/24 10:55 90 18 121/61 96 Oxymask 10/31/24 10:49 36.5 C 88 16 121/58 L 93 Room Air 10/31/24 07:21 36.8 C 86 18 155/79 H 97 Room Air O2 Flow Rate 10/31/24 11:25 5 10/31/24 11:15 5 10/31/24 11:05 5 10/31/24 10:55 5 10/31/24 10:49 10/31/24 07:21 Transfer of Care Handoff Completed per policy Notes Mental Status: alert / awake / arousable Patient Amnestic to Procedure: Yes Nausea / Vomiting: adequately controlled Pain: adequately controlled Airway Patency, RR, SpO2: stable & adequate BP & HR: stable & adequate Hydration State: stable & adequate Neuraxial Anesthesia: was administered and sensory block is resolving Anesthetic Complications: no major complications apparent
[2024-10-31] MEDS ORDERED: ALUMINUM/MAGNESIUM SUSP 30 ML UDC PO PRN (11:59)
[2024-10-31] MEDS ORDERED: METOCLOPRAMIDE HCL INJ 5 MG/ML 2 ML VIAL IV PRN (11:59)
[2024-10-31] MEDS ORDERED: oxyCODONE HCL IR 5 MG TAB (IMMEDIATE RELEASE) PO PRN (11:59)
[2024-10-31] MEDS ORDERED: MAGNESIUM HYDROXIDE SUSP 30 ML UDC PO PRN (11:59)
[2024-10-31] MEDS ORDERED: bisacodyL 10 MG SUPP PR PRN (11:59)
[2024-10-31] MEDS ORDERED: TAMSULOSIN HCL 0.4 MG CAP PO PRN (11:59)
[2024-10-31] MEDS ORDERED: HYDROmorphone INJ 0.5 MG/0.5 ML SYR IV PRN (11:59)
[2024-10-31] MEDS ORDERED: ECHINACEA 400 MG PO PRN (11:59)
[2024-10-31] MEDS ORDERED: PNEUMOCOCCAL VACCINE (PCV20) 20-VAL CONJ-DIP CRM/PF 0.5 ML SYR IM ONE (12:13)
[2024-10-31] MEDS: ceFAZolin 2000MG 2,000 MG/15 ML SYR IV SCH ×2 (12:30→17:46)
[2024-10-31] MEDS: ORTHO JOINT ANESTHETIC ONE (12:30)
[2024-10-31] MEDS: SODIUM CHLORIDE 0.9% 1,000 ML IV SCH (12:31)
[2024-10-31] MEDS: KETOROLAC TROMETHAMINE 15 MG/ML VIAL IV SCH (13:27)
[2024-10-31] MEDS: TRANEXAMIC ACID / 0.7% NACL 1,000 MG/100 ML BAG IV SCH (17:47)
[2024-10-31 19:52] VITALS: RESP 16
[2024-10-31] MEDS: SODIUM CHLORIDE 0.65% NA SOLN 45 ML (OCEAN) NAE SCH (20:10)
[2024-10-31] MEDS: SENNA 8.6 MG TAB PO SCH (20:10)
[2024-10-31] MEDS: DOCUSATE SODIUM 100 MG CAP PO SCH (20:10)
[2024-10-31] MEDS: TOCOPHERYL, DL-ALPHA 400 UNITS 180 MG CAP PO SCH (20:12)
[2024-10-31] MEDS: GABAPENTIN 800 MG TAB PO SCH (20:12)
[2024-10-31] MEDS: ASPIRIN 81 MG ECTAB PO SCH (20:12)
[2024-10-31] MEDS: OMEGA-3 (PURIFIED FISH OIL) 1 GM CAP PO SCH (20:13)
[2024-10-31] MEDS: ASCORBIC ACID 500 MG TAB PO SCH (20:13)
[2024-10-31] MEDS: GABAPENTIN 400 MG CAP PO SCH (20:14)
[2024-10-31] MEDS ORDERED: SENNA 8.6 MG TAB PO SCH (21:00)
[2024-10-31] MEDS ORDERED: NON-FORMULARY MEDICATION (Multivitamin Capsule) PO SCH (21:00)
[2024-10-31 23:24] VITALS: TEMP 98.2; O2SAT 95
[2024-11-01 07:22] LABS: Hematocrit (blood only) 37.5 % (42.0-52.0); Hemoglobin 13.2 g/dl (14.0-18.0); Mean Corpuscular Hemoglobin 29.7 pg (25.0-34.0); Mean Corpuscular Hgb Conc 35.2 g/dL (32.0-36.0); Mean Corpuscular Volume 84.3 fL (80.0-100.0); Mean Platelet Volume 10.9 fL (9.4-12.4); Platelet Count 250 K/uL (130-400); RDW Coefficient of Variation 12.9 % (11.5-14.5); RDW Standard Deviation 39.5 fL (36.4-46.3); Red Blood Count 4.45 M/uL (4.70-6.10); White Blood Count 19.69 K/ul (4.8-10.8)
[2024-11-01 07:45] LABS: BUN Creatinine Ratio 15.5 (10-20); Calcium 8.6 mg/dl (8.6-10.3); Creatinine Clr Calc Pharmacy 52.8 ml/min; Potassium 4.1 mmol/L (3.5-5.1)
[2024-11-01 07:47] VITALS: BP 136/78
--- NOTE | 2024-11-01 08:24 | Orthopedic Progress Note ---
Date of Service November 01, 2024 Assessment & Plan (1) Status post right knee replacement: Plan: 74-year-old gentleman postop day 1 from a right knee replacement. He is doing pretty well. Pain is controlled. Creatinine slightly elevated and will hold encourage p.o. intake and discontinue Toradol. Plan: 1. DVT prophylaxis including thigh-high teds, SCDs, aspirin twice a day. 2. PT/OT. Weight-bear as taught. Right total knee protocol. 3. Pain control. Doing well with current pain regimen. 4. Disposition. Plan to discharge to home with some home health later today if he does okay in therapy. Admission and Anticipated Discharge Date Admission Date: October 31, 2024 Subjective 74-year-old gentleman postop day 1 from right knee replacement. He is doing pretty well. Pain is controlled overnight. Is been up and walking some already. No chest pain or shortness of breath. Not feeling dizzy or lightheaded. Physical Exam Physical Exam: Physical nation is a pleasant middle-age male. He is sitting up in bed looks quite comfortable this morning. Examination of the right leg reveals the dressing be clean dry and intact. He can dorsiflex and plantarflex his foot appropriately. Can do a straight leg raise. Respiratory: normal respiratory effort, lungs clear to auscultation Cardiovascular: RRR, no murmur, no edema Gastrointestinal (Abdomen): normal bowel sounds, soft, nontender, no hepatosplenomegaly Results & Data Vital Signs (Past 12 Hours) Vital Signs Temp Pulse Pulse Resp BP Pulse Ox O2 Del Method 11/01/24 07:45 36.8 C 86 16 136/78 95 Room Air 11/01/24 03:00 36.8 C 83 16 146/79 H 95 Room Air 10/31/24 23:00 36.8 C 89 16 152/77 H 95 Room Air Laboratory Results Hemoglobin is 13.2. Hematocrit is 37.5. Electrolytes are stable. Creatinine just slightly elevated at 1.42.
[2024-11-01] MEDS ORDERED: NON-FORMULARY MEDICATION (Saw Palmetto 450 mg Capsule) PO SCH (09:00)
[2024-11-01] MEDS: GLUCOSAMINE SULFATE 500 MG CAP PO SCH (09:44)
[2024-11-01] MEDS: CHOLECALCIFEROL 25 MCG (1000 UNITS) TAB PO SCH (09:45)
[2024-11-01] MEDS: CYANOCOBALAMIN (B-12) 500 MCG TABLET PO SCH (09:45)
[2024-11-01] MEDS: amLODIPine BESYLATE 5 MG TAB PO SCH (09:45)
[2024-11-01] MEDS: MULTIVITAMIN TAB PO SCH (09:46)
[2024-11-01] MEDS: ENALAPRIL MALEATE 10 MG TAB PO SCH (09:46)
[2024-11-01] MEDS: MAGNESIUM OXIDE 400 MG TAB PO SCH (09:46)
[2024-11-01] MEDS: hydroCHLOROthiazide 25 MG TAB PO SCH (09:46)
[2024-11-01] MEDS: FOLIC ACID 400 MCG TAB PO SCH (09:47)
[2024-11-01] MEDS: allopurinoL 300 MG TAB PO SCH (09:47)
[2024-11-01] MEDS: CALCIUM CARBONATE 1250MG TAB PO SCH (09:47)
[2024-11-01] MEDS: dexAMETHasone 10 MG in SYRINGE 0 ML IV SCH (09:47)
[2024-11-01 10:51] VITALS: PULSE 83
== END 2024-11-01 11:22 | disposition home health service (06) ==
LOC: 3N 07:03 → ASU 07:03